=== PATIENT | female | born 1960 ===

== ENCOUNTER 2024-01-24 08:07 | Emergency (ER) | payer SELFPAY ==
[~2024-01-24] VITALS: Ht 160 cm; Wt 86.4 kg
[2024-01-24 08:08] VITALS: BP 178/84; TEMP 98.1; O2SAT 98
== END 2024-01-24 10:57 | disposition left against medical advice (07) ==
LOC: M ED 08:07
DX: Z53.21 Procedure and treatment not carried out due to patient leaving prior to being seen by health care provider (principal)